=== PATIENT | male | born 1985 | race Caucasian/White ===

== ENCOUNTER 2021-03-31 14:21 | Emergency (ER) | payer OTHER ==
[~2021-03-31] VITALS: Ht 172.7 cm; Wt 119.3 kg
[2021-03-31] MEDS ORDERED: MIRTAZAPINE15 MG PO (14:59)
[2021-03-31] MEDS ORDERED: LEXAPRO20 MG PO (14:59)
[2021-03-31] MEDS ORDERED: CLINDAMYCIN PHO30 GM TOP (15:01)
[2021-03-31] MEDS ORDERED: SPIRONOLACTONE25 MG PO (15:01)
== END 2021-03-31 16:48 | disposition home or self-care (01) ==
LOC: ED 14:21
DX: S00.83XA Contusion of other part of head, initial encounter (principal); R04.0 Epistaxis; Y04.8XXA Assault by other bodily force, initial encounter; I10 Essential (primary) hypertension; Z88.8 Allergy status to other drugs, medicaments and biological substances; Z79.899 Other long term (current) drug therapy
CPT/HCPCS: 70450; 70486; 71045; 72125; 99284-25

== ENCOUNTER 2025-09-22 19:58 | Emergency (ER) | payer OTHER ==
[~2025-09-22] VITALS: Ht 172.7 cm; Wt 137.1 kg
[~2025-09-22 19:58] MED LIST: CLINDAMYCIN PHO30 GM TOP; LEXAPRO20 MG PO; MIRTAZAPINE15 MG PO; SPIRONOLACTONE25 MG PO
[2025-09-22 20:39] LABS: BASOPHILS 1.0 % (0.2-1.2); EOSINOPHILS 2.3 % (0.8-7.0); LYMPHOCYTES 23.2 % (21.8-53.1); MCH 28.5 PG (25.7-32.2); MCHC 33.3 g/dL (32.3-36.5); MCV 85.4 fL (79.0-92.2); MONOCYTES 6.8 % (5.3-12.2); NEUTROPHILS 66.2 % (34.0-67.9); RBC 4.78 M/uL (4.63-6.08)
[2025-09-22] MEDS ORDERED: LACTATED RINGER'S 1,000 ML IV ONE (20:45)
[2025-09-22] MEDS ORDERED: MORPHINE SULFATE 4 MG/ML VIAL IV ONE (20:45)
[2025-09-22] MEDS ORDERED: KETOROLAC TROMETHAMINE 30 MG/ML VIAL IV ONE (20:45)
[2025-09-22 20:50] LABS: ALT (SGPT) 34.0 U/L (14-59); AST (SGOT) 18.0 U/L (15-37); GLOMERULAR FILTRATION RATE,EST 84.0 mL/min (>60); PROTEIN, TOTAL 8.0 g/dL (6.4-8.2); UREA NITROGEN 10.0 mg/dL (7-18)
[2025-09-22] MEDS ORDERED: TAMSULOSIN HCL 0.4 MG CAP PO ONE (22:30)
[2025-09-22] MEDS ORDERED: TAMSULOSIN HCL0.4 MG PO (22:37)
[2025-09-22] MEDS ORDERED: HYDROCODON-ACE1 EA10 PO (22:37)
[2025-09-22] MEDS ORDERED: HYDROCODONE BIT/ACETAMINOPHEN 5/325 MG 1 TAB HOME.PACK PO ONE (22:45)
[2025-09-22 22:57] VITALS: BP 135/88
== END 2025-09-22 22:58 | disposition other institution, planned readmission (95) ==
LOC: ED 19:58
PROVIDERS: Internal Medicine
DX: N13.2 Hydronephrosis with renal and ureteral calculous obstruction (principal); I10 Essential (primary) hypertension; Z88.6 Allergy status to analgesic agent
CPT/HCPCS: 74176; 80053; 83690; 85025; 96361; 96374; 96375; 99284-25; A9270; J1885; J2270; J2405; J7121